=== PATIENT | female | born 1985 | race Two or more races ===

== ENCOUNTER 2016-11-09 02:39 | Emergency (ER) | payer OTHER ==
[2016-11-09 02:51] VITALS: TEMP 96.7
--- NOTE | 2016-11-09 03:00 | ED ---
General Adult HPI - General Source: police, RN notes reviewed Mode of arrival: EMS Limitations: no limitations <Bharat Tapia - Last Filed: 11/09/16 03:13> <Bharat Olmstead - Last Filed: 11/09/16 09:54> - General Chief complaint: Psychiatric Symptoms Stated complaint: Mental Health/ETOH Time Seen by Provider: 11/09/16 02:45 - History of Present Illness Initial comments: This is a 31-year-old female who was brought to the emergency department by EMS with the police. According to EMS she was in an argument with her girlfriend and she started yelling and becoming uncooperative and hostile. Patient stated she wanted to kill himself and so they brought her to the emergency department. Patient states she was not hit and did not have anyone patient denies any pain. Patient denies headache patient denies any neck pain patient denies any difficulty breathing or abdominal pain. Patient denies any nausea vomiting diarrhea. Patient states she did no drug but she has been drinking. (Bharat Tapia) - Related Data Home Medications Medication Instructions Recorded Confirmed Gabapentin [Neurontin] 600 mg PO Q8H 03/04/14 11/09/16 Allergies Allergy/AdvReac Type Severity Reaction Status Date / Time POWDER IN GLOVES AdvReac Unknown IRRITATED Uncoded 06/21/15 12:06 SKIN Review of Systems ROS Other: All systems not noted in ROS Statement are negative. <Bharat Tapia - Last Filed: 11/09/16 03:13> ROS Other: All systems not noted in ROS Statement are negative. <Bharat Olmstead - Last Filed: 11/09/16 09:54> ROS Statement: Those systems with pertinent positive or pertinent negative responses have been documented in the HPI. Past Medical History Past Medical History: GERD/Reflux, Hyperlipidemia, Pneumonia, Sleep Apnea/CPAP/ BIPAP Additional Past Medical History / Comment(s): NO C-PAP, GENITAL HERPES, MIGRAINES, BRONCHITIS. History of Any Multi-Drug Resistant Organisms: MRSA Date of last positivie culture/infection: 06/21/15 MDRO Source:: right foot Past Surgical History: Tonsillectomy Additional Past Surgical History / Comment(s): TONSILLECTOMY & EAR TUBES A CHILD, NERVES "BURNT " IN NECK. Past Anesthesia/Blood Transfusion Reactions: No Reported Reaction Past Psychological History: Anxiety, Bipolar Smoking Status: Current every day smoker Past Alcohol Use History: None Reported Past Drug Use History: Marijuana Additional Drug Use History / Comment(s): USES MARIJUANA DAILY. <Bharat Tapia - Last Filed: 11/09/16 03:13> General Exam Limitations: no limitations <Bharat Tapia - Last Filed: 11/09/16 03:13> <Bharat Olmstead - Last Filed: 11/09/16 09:54> - General Exam Comments Initial Comments: GENERAL: Patient is well-developed and well-nourished. Patient is nontoxic and well- hydrated and is in no acute distress. The patient is very upset and uncooperative ENT: Neck is soft and supple. No significant lymphadenopathy is noted. Oropharynx is clear. Moist mucous membranes. Neck has full range of motion without eliciting any pain. EYES: The sclera were anicteric and conjunctiva were pink and moist. Extraocular movements were intact and pupils were equal round and reactive to light. Eyelids were unremarkable. PULMONARY: Unlabored respirations. Good breath sounds bilaterally. No audible rales rhonchi or wheezing was noted. CARDIOVASCULAR: There is a regular rate and rhythm without any murmurs gallops or rubs. ABDOMEN: Soft and nontender with normal bowel sounds. No palpable organomegaly was noted. There is no palpable pulsatile mass. SKIN: Skin is clear with no lesions or rashes and otherwise unremarkable. NEUROLOGIC: Patient is alert and oriented x3. Cranial nerves II through XII are grossly intact. Motor and sensory are also intact. Normal speech, volume and content. Symmetrical smile. MUSCULOSKELETAL: Normal extremities with adequate strength and full range of motion. LYMPHATICS: No significant lymphadenopathy is noted PSYCHIATRIC: Patient is intoxicated and clearly she suicidal (Bharat Tapia) Course <Bharat Tapia - Last Filed: 11/09/16 03:13> <Bharat Olmstead - Last Filed: 11/09/16 09:54> Vital Signs 11/09/16 02:45 Temperature 96.7 F L Pulse Rate 99 Respiratory 18 Rate Blood Pressure 182/117 O2 Sat by Pulse 96 Oximetry - Reevaluation(s) Reevaluation #1: 11/09/16 09:53 Patient was made medically clear for psychiatric evaluation (Bharat Olmstead) Procedures - Restraint - Face to Face Restraint Occurrence 1 Patient's Immediate Situation: Endangers self safety, Endangers others' safety, Endangers staff safety Patient's Reaction to the Intervention: Uncooperative, Angry, Hostile, Belligerent Patient's Medical & Behavioral Condition: Awake, Alert, Other (see comment) ( Patient appears intoxicated) Face to Face Eval of Restraint Date: 11/09/16 Face to Face Eval of Restraint Time: 02:50 <Bharat Tapia - Last Filed: 11/09/16 03:13> Medical Decision Making <Bharat Tapia - Last Filed: 11/09/16 03:13> <Bharat Olmstead - Last Filed: 11/09/16 09:54> - Medical Decision Making Dr. Olmstead taking over the care of this patient at 7 AM (Bharat Tapia) 31 female at ER for evaluation of psychiatric disease, alcohol intoxication, patient this time is not homicidal or suicidal, was seen and evaluated by psychiatry and can be discharged home (Bharat Olmstead) Disposition <Bharat Tapia - Last Filed: 11/09/16 03:13> <Bharat Olmstead - Last Filed: 11/09/16 09:54> Clinical Impression: Depression, Alcohol intoxication Disposition: HOME SELF-CARE Condition: Good Instructions: Abuse of Alcohol (ED), Alcohol Intoxication (ED) Referrals: None,Stated [Primary Care Provider] - 1-2 days
[2016-11-09] MEDS ORDERED: ZIPRASIDONE 20 MG VIAL IM STA (03:13)
[2016-11-09] MEDS ORDERED: LORazepam 2 MG/ML SYRINGE IM STA (03:13)
[2016-11-09 10:00] VITALS: BP 116/67; PULSE 102; RESP 15
== END 2016-11-09 10:45 | disposition home or self-care (01) ==
LOC: EC 02:39
DX: F32.9 Major depressive disorder, single episode, unspecified (principal); F10.129 Alcohol abuse with intoxication, unspecified; Z79.899 Other long term (current) drug therapy; Z91.048 Other nonmedicinal substance allergy status; F17.200 Nicotine dependence, unspecified, uncomplicated; Z78.1 Physical restraint status
CPT/HCPCS: 96372 ×2; 99284; 82075; J2060; J3486

== ENCOUNTER → 2018-11-28 | Outpatient (CLI) | payer OTHER ==
[2018-11-28 09:10] LABS: HGB 14.8 gm/dL (11.4-16.0); MCH 30.6 pg (25.0-35.0); MCHC 32.2 g/dL (31.0-37.0); MCV 95.2 fL (80.0-100.0); Mean Platelet Volume 8.4; Platelet Count 220 k/uL (150-450); RBC 4.83 m/uL (3.80-5.40); RDW 13.1 % (11.5-15.5); WBC 7.8 k/uL (3.8-10.6)
[2018-11-28 09:11] LABS: Prothrombin Time 10.6 sec (9.0-12.0)
[2018-11-28 09:42] LABS: Bilirubin, Delta 0.1 mg/dL (0.0-0.2); Bilirubin,Unconjugated 0.6 mg/dL (0.0-1.1); Total Bilirubin 0.7 mg/dL (0.2-1.3); Total Protein 7.2 g/dL (6.3-8.2)
--- NOTE | 2018-11-28 13:58 | US ---
EXAMINATION TYPE: US liver DATE OF EXAM: 11/28/2018 COMPARISON: NONE CLINICAL HISTORY: Z85.3 Personal History of infectious and parasitic diseases. Patient stated has Herpes and tested positive for Hepatitis C antibody. EXAM MEASUREMENTS: Liver Length: 14.6 cm Gallbladder Wall: 0.2 cm CBD: 0.2 cm Right Kidney: 10.6 x 5.1 x 3.5 cm Pancreas: Tail obscured by overlying bowel gas Liver: hyperechoic to right renal cortex which suggests fatty liver Gallbladder: wnl Evidence for sonographic Garcia's sign: no CBD: wnl Right Kidney: No hydronephrosis or masses seen IMPRESSION: 1. Mild fatty liver.
[2018-11-28 17:28] LABS: EBV-VCA (IgG) >8.0 AI
[2018-11-28 18:18] LABS: Protein, Total 6.7 g/dL (6.2-8.2)
[2018-11-28 18:50] LABS: Urine Alcohol Negative (Negative); Urine Barbiturate Negative (Negative); Urine Cocaine Negative (Negative); Urine Methadone Negative (Negative); Urine Opiates Negative (Negative); Urine Phencyclidine Negative (Negative)
[2018-11-29 13:22] LABS: Gamma Globulin 1.17 g/dL (0.70-1.50)
[2018-11-29 13:39] LABS: Ceruloplasmin 25.5 mg/dL (20.0-60.0)
== END | disposition home or self-care (01) ==
LOC: RADUSWWP 08:21
PROVIDERS: ATTEND Internal Medicine Gastroenterology
DX: Z09 Encounter for follow-up examination after completed treatment for conditions other than malignant neoplasm (principal); K76.0 Fatty (change of) liver, not elsewhere classified; R74.8 Abnormal levels of other serum enzymes; Z86.19 Personal history of other infectious and parasitic diseases
CPT/HCPCS: 76705; 80076; 80306; 82390; 82728; 83516; 83540; 83550; 84165; 85027; 85610; 86038; 86644; 86645; 86663; 86664; 86665; 87522

== ENCOUNTER 2019-01-10 23:22 | Emergency (ER) | payer OTHER ==
--- NOTE | 2019-01-10 23:29 | ED ---
Psych HPI <Bharat Tapia - Last Filed: 01/11/19 09:59> <Yasmin Bryant - Last Filed: 01/11/19 20:41> - General Stated Complaint: ETOH/Mental Health Time Seen by Provider: 01/10/19 23:27 - History of Present Illness Initial Comments: There is a 33-year-old female with a history of polysubstance abuse who presents the emergency department today via EMS for evaluation of intoxication and aggressive behavior. Police were called because the patient was intoxicated refusing to get off of a public bus. Please from the patient appeared to be very intoxicated was uncooperative had an unsteady gait they called EMS. Decision was made the patient needed to be medically evaluated. Patient was noted to have abrasions on her right knee and hand she reported punching something that she never could until she got the abrasion on her knee or what she had punched with her hand. Upon initial evaluation patient is tearful and crying stating she was 30 day sober from meth but today she had marijuana and alcohol. She denies other drug use. She is uncertain how she got or injuries. (Yasmin Bryant) - Related Data Home Medications Medication Instructions Recorded Confirmed No Known Home Medications 01/11/19 01/11/19 Allergies Allergy/AdvReac Type Severity Reaction Status Date / Time POWDER IN GLOVES AdvReac Unknown IRRITATED Uncoded 01/10/19 23:29 SKIN Review of Systems ROS Other: All systems not noted in ROS Statement are negative. <Bharat Tapia - Last Filed: 01/11/19 09:59> ROS Other: All systems not noted in ROS Statement are negative. <Yasmin Bryant - Last Filed: 01/11/19 20:41> ROS Statement: Those systems with pertinent positive or pertinent negative responses have been documented in the HPI. Past Medical History Past Medical History: GERD/Reflux, Hyperlipidemia, Pneumonia, Sleep Apnea/CPAP/BIPAP Additional Past Medical History / Comment(s): NO C-PAP, GENITAL HERPES, MIGRAINES, BRONCHITIS. History of Any Multi-Drug Resistant Organisms: MRSA Date of last positivie culture/infection: 06/21/15 MDRO Source:: right foot Past Surgical History: Tonsillectomy Additional Past Surgical History / Comment(s): TONSILLECTOMY & EAR TUBES A CHILD, NERVES "BURNT " IN NECK. Past Anesthesia/Blood Transfusion Reactions: No Reported Reaction Past Psychological History: Anxiety, Bipolar Smoking Status: Current every day smoker Past Alcohol Use History: None Reported Past Drug Use History: Marijuana Additional Drug Use History / Comment(s): USES MARIJUANA DAILY. <Yasmin Bryant P - Last Filed: 01/11/19 20:41> General Exam <Yasmin Bryant P - Last Filed: 01/11/19 20:41> - General Exam Comments Initial Comments: Physical Exam GENERAL: Agitated female HENT: Normocephalic, Atraumatic. EYES: PERRL, EOMI PULMONARY: Unlabored respirations. CARDIOVASCULAR: Tachycardic, regular warm and well perfused extremities no lower extremity edema ABDOMEN: Soft and nontender with normal bowel sounds. SKIN: Abrasion to right knee no active bleeding Abrasion to right hand no active bleeding : Deferred NEUROLOGIC: Alert and oriented to person and able scheduled for she is in the hospital, alert to date alert to date slurred speech consistent with alcohol intoxication MUSCULOSKELETAL: Normal extremities with adequate strength and full range of motion. No lower extremity swelling or edema. No calf tenderness. PSYCHIATRIC: agitated, aggressive yelling out, cursing at staff Limitations: no limitations (Yasmin Bryant) Course Vital Signs 01/10/19 01/11/19 01/11/19 23:25 00:23 01:00 Temperature 97.4 F L Pulse Rate 104 H 64 68 Respiratory 16 14 14 Rate Blood Pressure 136/104 108/78 O2 Sat by Pulse 98 97 98 Oximetry 01/11/19 01/11/19 01/11/19 01:23 07:50 10:24 Temperature 97.9 F Pulse Rate 98 116 H Respiratory 14 18 18 Rate Blood Pressure 112/77 122/93 115/86 O2 Sat by Pulse 98 98 98 Oximetry Procedures - Restraint - Face to Face Restraint Occurrence 1 Patient's Immediate Situation: Endangers self safety, Endangers others' safety, Endangers staff safety, Violent behavior Patient's Reaction to the Intervention: Hostile, Belligerent Patient's Medical & Behavioral Condition: Awake, Agitated, Suicidal thoughts Need to Continue or Terminate Restraint or Seclusion: Continue Face to Face Eval of Restraint Date: 04/05/19 Face to Face Eval of Restraint Time: 23:35 <Yasmin Bryant - Last Filed: 01/11/19 20:41> Medical Decision Making - Lab Data Result diagrams: 01/11/19 00:15 01/11/19 00:15 <Bharat Tapia - Last Filed: 01/11/19 09:59> - Lab Data Result diagrams: 01/11/19 00:15 01/11/19 00:15 <Yasmin Bryant - Last Filed: 01/11/19 20:41> - Medical Decision Making EPS evaluated the patient and determined that the patient could be discharged home to a [place] [facility]. Patient is not suicidal or homicidal at this time and does not remember ever seeing anything like that. (Bharat Tapia) Patient was seen and evaluated upon arrival, she is belligerent and admits to being intoxicated Patient does have abrasion to her right knee and hand. In the setting of obvious trauma and altered mental status while intoxicated I will obtain a head CT Labs resulted with a alcohol of 250 patient will be sober around [address] were unremarkable Patient calm after Ativan, sleeping comfortably Patient will be evaluated by EPS when sober (Yasmin Bryant) - Lab Data Lab Results 01/11/19 01/11/19 01/11/19 Range/Units 00:15 00:15 01:15 WBC 8.8 (3.8-10.6) k/uL RBC 4.65 (3.80-5.40) m/uL Hgb 14.2 (11.4-16.0) gm/dL Hct 41.8 (34.0-46.0) % MCV 89.8 D (80.0-100.0) fL MCH 30.6 (25.0-35.0) pg MCHC 34.1 (31.0-37.0) g/dL RDW 14.1 (11.5-15.5) % Plt Count 187 (150-450) k/uL Neutrophils % 57 % Lymphocytes % 30 % Monocytes % 5 % Eosinophils % 5 % Basophils % 1 % Neutrophils # 5.0 (1.3-7.7) k/uL Lymphocytes # 2.6 (1.0-4.8) k/uL Monocytes # 0.5 (0-1.0) k/uL Eosinophils # 0.4 (0-0.7) k/uL Basophils # 0.1 (0-0.2) k/uL Sodium 141 (137-145) mmol/L Potassium 3.7 (3.5-5.1) mmol/L Chloride 109 H (98-107) mmol/L Carbon Dioxide 21 L (22-30) mmol/L Anion Gap 11 mmol/L BUN 13 (7-17) mg/dL Creatinine 0.56 (0.52-1.04) mg/dL Est GFR (CKD-EPI)AfAm >90 (>60 ml/min/1.73 sqM) Est GFR (CKD-EPI)NonAf >90 (>60 ml/min/1.73 sqM) Glucose 87 (74-99) mg/dL Calcium 9.2 (8.4-10.2) mg/dL Total Bilirubin 0.4 (0.2-1.3) mg/dL AST 165 H (14-36) U/L ALT 268 H (9-52) U/L Alkaline Phosphatase 60 (38-126) U/L Total Protein 7.3 (6.3-8.2) g/dL Albumin 4.2 (3.5-5.0) g/dL HCG, Quant <2.4 mIU/mL Urine Color Urine Appearance (Clear) Urine pH (5.0-8.0) Ur Specific [place] (1.001-1.035) Urine Protein (Negative) Urine Glucose (UA) (Negative) Urine Ketones (Negative) Urine Blood (Negative) Urine Nitrite (Negative) Urine Bilirubin (Negative) Urine Urobilinogen (<2.0) mg/dL Ur Leukocyte Esterase (Negative) Urine HCG, Qual (Not Detectd) Urine Opiates Screen (NotDetected) Ur Oxycodone Screen (NotDetected) Urine Methadone Screen (NotDetected) Ur Propoxyphene Screen (NotDetected) Ur Barbiturates Screen (NotDetected) U Tricyclic Antidepress (NotDetected) Ur Phencyclidine Scrn (NotDetected) Ur Amphetamines Screen (NotDetected) U Methamphetamines Scrn (NotDetected) U Benzodiazepines Scrn (NotDetected) Urine Cocaine Screen (NotDetected) U Marijuana (THC) Screen (NotDetected) Serum Alcohol 255 H* mg/dL 01/11/19 01/11/19 Range/Units 05:35 05:35 WBC (3.8-10.6) k/uL RBC (3.80-5.40) m/uL Hgb (11.4-16.0) gm/dL Hct (34.0-46.0) % MCV (80.0-100.0) fL MCH (25.0-35.0) pg MCHC (31.0-37.0) g/dL RDW (11.5-15.5) % Plt Count (150-450) k/uL Neutrophils % % Lymphocytes % % Monocytes % % Eosinophils % % Basophils % % Neutrophils # (1.3-7.7) k/uL Lymphocytes # (1.0-4.8) k/uL Monocytes # (0-1.0) k/uL Eosinophils # (0-0.7) k/uL Basophils # (0-0.2) k/uL Sodium (137-145) mmol/L Potassium (3.5-5.1) mmol/L Chloride (98-107) mmol/L Carbon Dioxide (22-30) mmol/L Anion Gap mmol/L BUN (7-17) mg/dL Creatinine (0.52-1.04) mg/dL Est GFR (CKD-EPI)AfAm (>60 ml/min/1.73 sqM) Est GFR (CKD-EPI)NonAf (>60 ml/min/1.73 sqM) Glucose (74-99) mg/dL Calcium (8.4-10.2) mg/dL Total Bilirubin (0.2-1.3) mg/dL AST (14-36) U/L ALT (9-52) U/L Alkaline Phosphatase (38-126) U/L Total Protein (6.3-8.2) g/dL Albumin (3.5-5.0) g/dL HCG, Quant mIU/mL Urine Color Light Yellow Urine Appearance Clear (Clear) Urine pH 6.5 (5.0-8.0) Ur Specific [place] 1.007 (1.001-1.035) Urine Protein Negative (Negative) Urine Glucose (UA) Negative (Negative) Urine Ketones Negative (Negative) Urine Blood Negative (Negative) Urine Nitrite Negative (Negative) Urine Bilirubin Negative (Negative) Urine Urobilinogen <2.0 (<2.0) mg/dL Ur Leukocyte Esterase Negative (Negative) Urine HCG, Qual Not Detected (Not Detectd) Urine Opiates Screen Not Detected (NotDetected) Ur Oxycodone Screen Not Detected (NotDetected) Urine Methadone Screen Not Detected (NotDetected) Ur Propoxyphene Screen Not Detected (NotDetected) Ur Barbiturates Screen Not Detected (NotDetected) U Tricyclic Antidepress Not Detected (NotDetected) Ur Phencyclidine Scrn Not Detected (NotDetected) Ur Amphetamines Screen Not Detected (NotDetected) U Methamphetamines Scrn Not Detected (NotDetected) U Benzodiazepines Scrn Detected H (NotDetected) Urine Cocaine Screen Not Detected (NotDetected) U Marijuana (THC) Screen Detected H (NotDetected) Serum Alcohol mg/dL Disposition Is patient prescribed a controlled substance at d/c from ED?: No Time of Disposition: 09:58 <Bharat Tapia - Last Filed: 01/11/19 09:59> <Yasmin Bryant - Last Filed: 01/11/19 20:41> Clinical Impression: Alcoholic intoxication, Situational depression Disposition: HOME SELF-CARE Instructions (If sedation given, give patient instructions): Depression (ED), Alcohol Intoxication (ED) Referrals: Clarisa Badillo MD [Primary Care Provider] - 1-2 days
[2019-01-10] MEDS ORDERED: LORazepam 2 MG/ML INJ IM STA (23:30)
[2019-01-10] MEDS ORDERED: DIPH,PERTUS(ACELL)TETVAC-LF 0.5 ML VIAL IM ONE (23:54)
[2019-01-11 00:42] LABS: Basophils # (A) 0.1 k/uL (0-0.2); Basophils % (A) 1 %; Eosinophils # (A) 0.4 k/uL (0-0.7); Eosinophils % (A) 5 %; HCT 41.8 % (34.0-46.0); HGB 14.2 gm/dL (11.4-16.0); Lymphocytes # (A) 2.6 k/uL (1.0-4.8); Lymphocytes % (A) 30 %; MCH 30.6 pg (25.0-35.0); MCHC 34.1 g/dL (31.0-37.0); Mean Platelet Volume 9.6; Monocytes # (A) 0.5 k/uL (0-1.0); Monocytes % (A) 5 %; Neutrophils % (A) 57 %; Platelet Count 187 k/uL (150-450); RBC 4.65 m/uL (3.80-5.40); RDW 14.1 % (11.5-15.5); WBC 8.8 k/uL (3.8-10.6)
[2019-01-11 00:53] LABS: MCV 89.8 fL (80.0-100.0)
[2019-01-11 01:10] LABS: ALT 268 U/L (9-52); AST 165 U/L (14-36); Albumin 4.2 g/dL (3.5-5.0); Alkaline Phosphatase 60 U/L (38-126); Anion Gap 11 mmol/L; Blood Urea Nitrogen 13 mg/dL (7-17); Calcium 9.2 mg/dL (8.4-10.2); Carbon Dioxide 21 mmol/L (22-30); Chloride 109 mmol/L (98-107); Glucose 87 mg/dL (74-99); Potassium 3.7 mmol/L (3.5-5.1); Sodium 141 mmol/L (137-145); Total Bilirubin 0.4 mg/dL (0.2-1.3); Total Protein 7.3 g/dL (6.3-8.2)
[2019-01-11 01:27] LABS: Alcohol 255 mg/dL
--- NOTE | 2019-01-11 02:13 | CT ---
EXAM: CT Head Without Intravenous Contrast CLINICAL HISTORY: ITS.REASON CT Reason: Pain TECHNIQUE: Axial computed tomography images of the head/brain without intravenous contrast. CTDI is 45.2 mGy and DLP is 1015 mGy-cm. This CT exam was performed using one or more of the following dose reduction techniques: automated exposure control, adjustment of the mA and/or kV according to patient size, and/or use of iterative reconstruction technique. COMPARISON: CT head 06/06/2015. FINDINGS: Brain: Unremarkable. No hemorrhage. No significant white matter disease. No edema. Ventricles: Unremarkable. No ventriculomegaly. Bones/joints: Unremarkable. No acute fracture. Soft tissues: Unremarkable. Sinuses: Unremarkable as visualized. No acute sinusitis. Mastoid air cells: Unremarkable as visualized. No mastoid effusion. Orbits: Small left periorbital contusion. IMPRESSION: 1. No intracranial hemorrhage or other acute intracranial abnormality. 2. Small left periorbital contusion. EXAM: CT Cervical Spine Without Intravenous Contrast CLINICAL HISTORY: ITS.REASON CT Reason: Pain TECHNIQUE: Axial computed tomography images of the cervical spine without intravenous contrast. CTDI is 10.6 mGy and DLP is 348.5 mGy-cm. This CT exam was performed using one or more of the following dose reduction techniques: automated exposure control, adjustment of the mA and/or kV according to patient size, and/or use of iterative reconstruction technique. COMPARISON: None. FINDINGS: Vertebrae: Unremarkable. No acute fracture. Discs/spinal canal/neural foramina: No acute findings. No spinal canal stenosis. Soft tissues: Unremarkable. IMPRESSION: No fracture or traumatic malalignment of the cervical spine.
[2019-01-11 06:01] LABS: Appearance,Urine Clear (Clear); Bilirubin,Urine Negative (Negative); Blood,Urine Negative (Negative); Color,Urine Light Yellow; Glucose,Urine (UA) Negative (Negative); Ketones,Urine Negative (Negative); Leukocyte Esterase,Urine Negative (Negative); Nitrite,Urine Negative (Negative); PH, Urine 6.5 (5.0-8.0); Protein,Urine Negative (Negative); Specific Gravity,Urine 1.007 (1.001-1.035); Urobilinogen,Urine <2.0 mg/dL (<2.0)
[2019-01-11 06:25] LABS: Amphetamine Screen,Urine Not Detected (NotDetected); Barbiturate Screen,Urine Not Detected (NotDetected); Cocaine Screen,Urine Not Detected (NotDetected); Methadone Screen, Urine Not Detected (NotDetected); Opiate Screen,Urine Not Detected (NotDetected); Oxycodone Screen, Urine Not Detected (NotDetected); Phencyclidine Screen,Urine Not Detected (NotDetected); Tricyclic Antidepressant,Urine Not Detected (NotDetected)
[2019-01-11 06:26] LABS: Benzodiazepines Screen,Urine Detected (NotDetected); Urn Cannabinoid Scrn Detected (NotDetected)
[2019-01-11 07:53] VITALS: RESP 18
[2019-01-11 10:26] VITALS: BP 115/86; PULSE 116; TEMP 97.9
== END 2019-01-11 10:23 | disposition home or self-care (01) ==
LOC: EC 23:22
DX: F43.21 Adjustment disorder with depressed mood (principal); F10.129 Alcohol abuse with intoxication, unspecified; S80.211A Abrasion, right knee, initial encounter; S60.511A Abrasion of right hand, initial encounter; R00.0 Tachycardia, unspecified; R45.1 Restlessness and agitation; R45.6 Violent behavior; F17.200 Nicotine dependence, unspecified, uncomplicated; Z91.048 Other nonmedicinal substance allergy status; Z86.14 Personal history of Methicillin resistant Staphylococcus aureus infection; Y90.8 Blood alcohol level of 240 mg/100 ml or more; Z78.1 Physical restraint status; Z23 Encounter for immunization; W22.8XXA Striking against or struck by other objects, initial encounter; Y92.811 Bus as the place of occurrence of the external cause
CPT/HCPCS: 82075; 36415; 80053; 85025; 81003; 81025; 84702; 80306; 72125; 70450; 90715; 99285; 96372; 90471; G0480; J2060; 80320

== ENCOUNTER 2020-11-13 03:51 | Emergency (ER) | payer OTHER ==
[2020-11-13 04:08] VITALS: RESP 18
--- NOTE | 2020-11-13 11:31 | ED ---
General Adult HPI - General Chief complaint: Psychiatric Symptoms Stated complaint: ETOH Time Seen by Provider: 11/13/20 03:59 Source: patient, EMS Mode of arrival: EMS Limitations: no limitations - Related Data Home Medications Medication Instructions Recorded Confirmed No Known Home Medications 01/11/19 11/13/20 Allergies Allergy/AdvReac Type Severity Reaction Status Date / Time POWDER IN GLOVES AdvReac Unknown IRRITATED Uncoded 11/13/20 09:57 SKIN Review of Systems ROS Statement: Those systems with pertinent positive or pertinent negative responses have been documented in the HPI. ROS Other: All systems not noted in ROS Statement are negative. Past Medical History Past Medical History: GERD/Reflux, Hyperlipidemia, Pneumonia, Sleep Apnea/CPAP/BIPAP Additional Past Medical History / Comment(s): NO C-PAP, GENITAL HERPES, MIGRAINES, BRONCHITIS. History of Any Multi-Drug Resistant Organisms: MRSA Date of last positivie culture/infection: 06/21/15 MDRO Source:: right foot Past Surgical History: Tonsillectomy Additional Past Surgical History / Comment(s): TONSILLECTOMY & EAR TUBES A CHILD, NERVES "BURNT " IN NECK. Past Anesthesia/Blood Transfusion Reactions: No Reported Reaction Past Psychological History: Anxiety, Bipolar Smoking Status: Current every day smoker Past Alcohol Use History: Occasional Past Drug Use History: Marijuana General Exam Limitations: no limitations Course Vital Signs 11/13/20 03:52 Temperature 97.8 F Pulse Rate 102 H Respiratory 18 Rate Blood Pressure 121/81 O2 Sat by Pulse 97 Oximetry Medical Decision Making - Medical Decision Making Dr. Han signed out this patient to me at 7 AM. Disposition Clinical Impression: Situational depression, Alcohol intoxication Disposition: HOME SELF-CARE Is patient prescribed a controlled substance at d/c from ED?: No Referrals: None,Stated [Primary Care Provider] - 1-2 days Time of Disposition: 11:29
[2020-11-13 11:48] VITALS: BP 122/82; PULSE 90; TEMP 97.9
== END 2020-11-13 11:45 | disposition home or self-care (01) ==
LOC: EC 03:51
DX: F43.21 Adjustment disorder with depressed mood (principal); F10.129 Alcohol abuse with intoxication, unspecified; Y90.9 Presence of alcohol in blood, level not specified; R45.851 Suicidal ideations; G47.30 Sleep apnea, unspecified; F17.200 Nicotine dependence, unspecified, uncomplicated; Z91.09 Other allergy status, other than to drugs and biological substances; Z99.89 Dependence on other enabling machines and devices
CPT/HCPCS: 82075; 99285

== ENCOUNTER → 2021-06-08 | Outpatient (CLI) | payer OTHER ==
[2021-06-08 21:12] LABS: Basophils # (A) 0.06 X 10*3/uL (0.00-0.10); Basophils % (A) 0.7 %; Eosinophils # (A) 0.71 X 10*3/uL (0.04-0.35); Eosinophils % (A) 8.5 %; HCT 40.9 % (37.2-46.3); HGB 13.5 g/dL (12.0-15.0); Lymphocytes # (A) 2.36 X 10*3/uL (0.90-5.00); Lymphocytes % (A) 28.2 %; MCH 29.9 pg (27.0-32.0); MCV 90.7 fL (80.0-97.0); Mean Platelet Volume 14.3 fL (9.5-12.2); Monocytes # (A) 0.76 X 10*3/uL (0.20-1.00); Monocytes % (A) 9.1 %; Neutrophils # (A) 4.41 X 10*3/uL (1.80-7.70); Neutrophils % (A) 52.7 %; Platelet Count 194 X 10*3/uL (140-440); RBC 4.51 X 10*6/uL (4.10-5.20); RDW 14.5 % (11.5-14.5); WBC 8.37 X 10*3/uL (4.50-10.00)
[2021-06-09 06:03] LABS: African American GFR (CKD) 110.7 (60.0-200.0); Albumin 4.4 g/dL (3.80-4.90); Albumin/Globulin Ratio 1.83 (1.60-3.17); Anion Gap 9.6 mmol/L (4.00-12.00); Calcium 10.3 mg/dL (8.7-10.3); Carbon Dioxide 22.4 mmol/L (21.6-31.8); Globulin 2.4 g/dL (1.6-3.3); Non-African American GFR(CKD) 95.5 (60.0-200.0); Total Bilirubin 0.3 mg/dL (0.3-1.2); Total Protein 6.8 g/dL (6.2-8.2)
== END | disposition home or self-care (01) ==
LOC: LABWHC1 13:44
PROVIDERS: ATTEND Internal Medicine Gastroenterology
DX: B18.2 Chronic viral hepatitis C (principal)
CPT/HCPCS: 36415; 80053; 85025; 87522

== ENCOUNTER 2021-09-19 06:55 | Emergency (ER) | payer OTHER ==
[2021-09-19 07:05] VITALS: TEMP 98.6
[2021-09-19] MEDS ORDERED: LORazepam 2 MG/ML INJ IV STA (07:09)
--- NOTE | 2021-09-19 07:26 | ED ---
URI HPI - General Chief Complaint: Upper Respiratory Infection Stated Complaint: covid+ Time Seen by Provider: 09/19/21 06:56 Source: patient, RN notes reviewed Mode of arrival: ambulatory Limitations: no limitations - History of Present Illness Initial Comments: This a 35-year-old female presents emergency Department with chief complaint of COVID-19. Patient states she tested +5 days ago Patient states symptoms started a few days prior to that. Patient states she still has cough, body aches, states that she has no taste or smell. She denies any increasing shortness of breath. She states that she's had burning of her lungs. Patient also admits that she relapsed on methamphetamines she states she's been injecting methamphetamines. She is very anxious currently. Denies being any suicidal or homicidal s - Related Data Home Medications Medication Instructions Recorded Confirmed No Known Home Medications 01/11/19 11/13/20 Allergies Allergy/AdvReac Type Severity Reaction Status Date / Time POWDER IN GLOVES AdvReac Unknown IRRITATED Uncoded 09/19/21 07:05 SKIN Review of Systems ROS Statement: Those systems with pertinent positive or pertinent negative responses have been documented in the HPI. ROS Other: All systems not noted in ROS Statement are negative. Past Medical History Past Medical History: GERD/Reflux, Hyperlipidemia, Liver Disease, Pneumonia, Sleep Apnea/CPAP/BIPAP Additional Past Medical History / Comment(s): NO C-PAP, GENITAL HERPES, MIGRAINES, BRONCHITIS. History of Any Multi-Drug Resistant Organisms: MRSA Date of last positivie culture/infection: 06/21/15 MDRO Source:: right foot Past Surgical History: Tonsillectomy Additional Past Surgical History / Comment(s): TONSILLECTOMY & EAR TUBES A CHILD, NERVES "BURNT " IN NECK. Past Anesthesia/Blood Transfusion Reactions: No Reported Reaction Past Psychological History: Anxiety, Bipolar Smoking Status: Current every day smoker Past Alcohol Use History: Occasional Past Drug Use History: Marijuana General Exam Limitations: no limitations General appearance: alert, in no apparent distress Head exam: Present: atraumatic, normocephalic, normal inspection Eye exam: Present: normal appearance, PERRL, EOMI. Absent: scleral icterus, conjunctival injection, periorbital swelling ENT exam: Present: normal exam, normal oropharynx, mucous membranes moist Neck exam: Present: normal inspection, full ROM. Absent: tenderness, meningismus, lymphadenopathy Respiratory exam: Present: normal lung sounds bilaterally. Absent: respiratory distress, wheezes, rales, rhonchi, stridor Cardiovascular Exam: Present: normal rhythm, tachycardia, normal heart sounds. Absent: systolic murmur, diastolic murmur, rubs, gallop, clicks GI/Abdominal exam: Present: soft, normal bowel sounds. Absent: distended, tenderness, guarding, rebound, rigid Neurological exam: Present: alert, oriented X3 Psychiatric exam: Present: anxious Skin exam: Present: warm, dry, intact, normal color. Absent: rash Course Vital Signs 09/19/21 09/19/21 09/19/21 07:01 07:24 08:02 Temperature 98.6 F Pulse Rate 132 H 118 H Respiratory 22 16 22 Rate Blood Pressure 153/94 136/101 O2 Sat by Pulse 98 97 Oximetry Medical Decision Making - Medical Decision Making 35-year-old presented for COVID-19. Patient did receive monoclonal antibodies x-rays unremarkable. Patient did abuse methamphetamines prior to arrival. Patient was tachycardic, was given Ativan will be discharged stable condition. Disposition Clinical Impression: COVID-19 Disposition: HOME SELF-CARE Condition: Stable Instructions (If sedation given, give patient instructions): Coronavirus Disease 2019 (COVID-19) Additional Instructions: Please return to the Emergency Department if symptoms worsen or any other concerns. Is patient prescribed a controlled substance at d/c from ED?: No Referrals: Clarisa Badillo MD [Primary Care Provider] - 1-2 days Time of Disposition: 08:09
--- NOTE | 2021-09-19 07:49 | XR ---
EXAMINATION TYPE: XR chest 2V DATE OF EXAM: 09/19/2021 COMPARISON: 05/11/2014 INDICATION: Cough TECHNIQUE: Frontal and lateral views of the chest are obtained. FINDINGS: The heart size is normal. The pulmonary vasculature is normal. The lungs are clear. IMPRESSION: 1. No acute pulmonary process.
[2021-09-19] MEDS ORDERED: BAMLANIVIMAB (EUA) 700 MG, ETESEVIMAB (EUA) 1,400 MG in SODIUM CHLORIDE 0.9% 50 ML IVPB ONE (08:00)
[2021-09-19] MEDS ORDERED: SODIUM CHLORIDE 0.9% 50 ML IVPB ONE (08:30)
[2021-09-19 09:06] VITALS: RESP 20
[2021-09-19 09:53] VITALS: BP 127/92; PULSE 118
== END 2021-09-19 09:49 | disposition home or self-care (01) ==
LOC: EC 06:55
DX: U07.1 COVID-19 (principal); F17.200 Nicotine dependence, unspecified, uncomplicated
CPT/HCPCS: 71046; 99283; 96374; J2060; J3490

== ENCOUNTER 2024-12-16 21:00 | Emergency (ER) | payer OTHER ==
[2024-12-16 21:13] VITALS: RESP 18
--- NOTE | 2024-12-16 21:28 | ED ---
Lower Extremity Injury HPI - General Chief Complaint: Extremity Injury, Lower Stated Complaint: posib broken toe Time Seen by Provider: 12/16/24 21:14 Source: patient, RN notes reviewed Mode of arrival: wheelchair Limitations: no limitations - History of Present Illness Initial Comments: 39-year-old female presenting to the emergency department for complaint of left great toe pain. Patient states that she was at work where she was moving a chicken fryer basket that accidentally dropped on her left great toe. States that she is able to ambulate after this however has been complaining of severe pain. Denies previous surgeries of the toe or foot. Has not taken medication since the injury - Related Data Home Medications Medication Instructions Recorded Confirmed Buprenorphine/Naloxone 8Mg/2Mg 1.5 film SL DAILY 11/19/22 11/19/22 [Suboxone 8-2Mg Film] Docusate Sodium 250 mg PO BID PRN 11/19/22 11/19/22 FLUoxetine HCL [PROzac] 40 mg PO DAILY 11/19/22 11/19/22 Famotidine [Pepcid] 20 mg PO DAILY 11/19/22 11/19/22 Medroxyprogesterone Acetate 150 mg IM Q90D 11/19/22 11/19/22 [Depo-Provera] Mirtazapine 45 mg PO HS 11/19/22 11/19/22 Omeprazole 40 mg PO DAILY 11/19/22 11/19/22 hydrOXYzine pamoate [Vistaril] 50 mg PO TID 11/19/22 11/19/22 polyethylene glycoL 3350 [Miralax] 17 gm PO DAILY PRN 11/19/22 11/19/22 Allergies Allergy/AdvReac Type Severity Reaction Status Date / Time POWDER IN GLOVES AdvReac Unknown IRRITATED Uncoded 12/16/24 21:10 SKIN Review of Systems ROS Statement: Those systems with pertinent positive or pertinent negative responses have been documented in the HPI. ROS Other: All systems not noted in ROS Statement are negative. Past Medical History Past Medical History: GERD/Reflux, Hyperlipidemia, Liver Disease, Pneumonia, Sleep Apnea/CPAP/BIPAP Additional Past Medical History / Comment(s): NO C-PAP, GENITAL HERPES, MIGRAINES, BRONCHITIS. History of Any Multi-Drug Resistant Organisms: MRSA Date of last positivie culture/infection: 06/21/15 MDRO Source:: right foot Past Surgical History: Tonsillectomy Additional Past Surgical History / Comment(s): TONSILLECTOMY & EAR TUBES A CHILD, NERVES "BURNT " IN NECK. Past Anesthesia/Blood Transfusion Reactions: No Reported Reaction Past Psychological History: Anxiety, Bipolar Smoking Status: Current every day smoker Past Alcohol Use History: Occasional Past Drug Use History: Marijuana General Exam Limitations: no limitations General appearance: alert, in no apparent distress ENT exam: Present: normal exam, mucous membranes moist Respiratory exam: Present: normal lung sounds bilaterally. Absent: respiratory distress, wheezes, rales, rhonchi, stridor Cardiovascular Exam: Present: regular rate, normal rhythm, normal heart sounds. Absent: systolic murmur, diastolic murmur, rubs, gallop, clicks GI/Abdominal exam: Present: soft, normal bowel sounds. Absent: distended, tenderness, guarding, rebound, rigid Left Foot/Toe exam: Present: tenderness. Absent: ecchymosis, deformity Neurovascular tendon exam: Present: no vascular compromise Gait: observed and limited by pain Back exam: Present: normal inspection Course Vital Signs 12/16/24 12/16/24 21:10 22:28 Temperature 98.1 F Pulse Rate 93 89 Respiratory 18 18 Rate Blood Pressure 134/98 128/90 O2 Sat by Pulse 100 100 Oximetry Medical Decision Making - Medical Decision Making Was pt. sent in by a medical professional or institution (Dr. PA, MACHINE TOOL DRESSER, urgent care, hospital, or assisted...) When possible be specific @ -No Did you speak to anyone other than the patient for history (EMS, parent, family, police, friend...)? What history was obtained from this source @ -No Did you review nursing and triage notes (agree or disagree)? Why? @ -I reviewed and agree with nursing and triage notes Were old charts reviewed (outside hosp., previous admission, EMS record, old EKG, old radiological studies, urgent care reports/EKG's, assisted records)? Report findings @ -No old charts were reviewed Differential Diagnosis (chest pain, altered mental status, abdominal pain women, abdominal pain men, vaginal bleeding, weakness, fever, dyspnea, syncope, headache, dizziness, GI bleed, back pain, seizure, CVA, palpatations, mental health, musculoskeletal)? @ -Differential Musculoskeletal Muscular strain, contusion, ligament sprain, fracture, arthritis, septic arthritis, bursitis, cellulitis, muscle spasm, nerve compression, DVT, arterial occlusion, herpes zoster, electrolyte abnormality, tumor.... This is not meant to be in all inclusive list EKG interpreted by me -[none X-rays interpreted by me (1pt min.). @ -X-ray of the left foot no evidence of acute fracture CT interpreted by me (1pt min.). @ -None done U/S interpreted by me (1pt. min.). @ -None done What testing was considered but not performed or refused? (CT, X-rays, U/S, labs)? Why? @ -None What meds were considered but not given or refused? Why? @ -None Did you discuss the management of the patient with other professionals (professionals i.e. , PA, MACHINE TOOL DRESSER, lab, RT, psych nurse, social science professor, solar energy engineer, teacher, information systems security officer, briefcase sewer)? Give summary @ -No Was smoking cessation discussed for >3mins.? @ -No Was critical care preformed (if so, how long)? @ -No Were there social determinants of health that impacted care today? How? (Homelessness, low income, unemployed, alcoholism, drug addiction, transportation, low edu. Level, literacy, decrease access to med. care, shelter, rehab)? @ -No Was there de-escalation of care discussed even if they declined (Discuss DNR or withdrawal of care, Hospice)? DNR status @ -No What co-morbidities impacted this encounter? (DM, HTN, Smoking, COPD, CAD, Cancer, CVA, ARF, Chemo, Hep., AIDS, mental health diagnosis, sleep apnea, morbid obesity)? @ -None Was patient admitted / discharged? Hospital course, mention meds given and route, prescriptions, significant lab abnormalities, going to OR and other pertinent info. @ -Discharge. 39-year-old female presenting with left great toe pain. Pedal pulse intact. She is provided with IM injection of Toradol for pain relief. X-ray is unremarkable. Supportive treatment discussed. Case discussed with Dr. Olmstead Undiagnosed new problem with uncertain prognosis? @ -No Drug Therapy requiring intensive monitoring for toxicity (Heparin, Nitro, Insulin, Cardizem)? @ -No Were any procedures done? @ -No Diagnosis/symptom? @ -toe sprain Acute, or Chronic, or Acute on Chronic? @ -acute Uncomplicated (without systemic symptoms) or Complicated (systemic symptoms)? @ -uncomplicated Side effects of treatment? @ -No Exacerbation, Progression, or Severe Exacerbation? @ -No Poses a threat to life or bodily function? How? (Chest pain, [place], [place], pneumonia, PE, COPD, DKA, ARF, appy, cholecystitis, CVA, Diverticulitis, Homicidal, Suicidal, threat to staff... and all critical care pts) @ -No Disposition Clinical Impression: Toe sprain Disposition: HOME SELF-CARE Condition: Good Instructions (If sedation given, give patient instructions): Foot Contusion (ED) Additional Instructions: Please return to the Emergency Department if symptoms worsen or any other concerns. Is patient prescribed a controlled substance at d/c from ED?: No Referrals: None,Stated [Primary Care Provider] - 1-2 days Time of Disposition: 21:44
--- NOTE | 2024-12-16 21:42 | XR ---
EXAMINATION TYPE: XR foot complete LT DATE OF EXAM: 12/16/2024 9:34 PM COMPARISON: None CLINICAL INDICATION: Female, 39 years old with history of great toe injury, pain, pain TECHNIQUE: XR foot complete LT examined in the AP, oblique, and lateral projections. FINDINGS: No evidence of any acute osseous pathology. Minimal degeneration changes of the first digit tarsometa tarsal joint. Moderate joint space narrowing. IMPRESSION: 1. No evidence of acute fracture. 2. Minimal degeneration changes of the first digit tarsometatarsal joint. [facility], , 12/16/2024 9:39 PM
[2024-12-16] MEDS: KETOROLAC 15 MG/ML 1 ML VIAL IM STA (21:47)
[2024-12-16 22:29] VITALS: BP 128/90; PULSE 89; TEMP 98.1
== END 2024-12-16 22:28 | disposition home or self-care (01) ==
LOC: EC 21:00
DX: S93.502A Unspecified sprain of left great toe, initial encounter (principal); F17.200 Nicotine dependence, unspecified, uncomplicated; Z91.148 Patient's other noncompliance with medication regimen for other reason; W20.8XXA Other cause of strike by thrown, projected or falling object, initial encounter
CPT/HCPCS: 73630; 99283; 96372; J1885

== ENCOUNTER 2025-04-05 14:58 | Emergency (ER) | payer OTHER ==
[2025-04-05] MEDS: KETOROLAC 15 MG/ML 1 ML VIAL IM STA (16:10)
--- NOTE | 2025-04-05 16:29 | XR ---
EXAMINATION TYPE: XR hand complete RT DATE OF EXAM: 04/05/2025 4:21 PM INDICATION: Patient age:Female; 39 years old; Reason for study: medial hand hit with ball; [facility]. pain COMPARISON: Right forearm radiograph 04/05/2025, right hand radiograph 06/06/2015 TECHNIQUE: Frontal, lateral and oblique views of the right hand were obtained. FINDINGS: Normal alignment of the visualized joints. No acute osseous pathology is identified. Dorsa l hand soft tissue swelling. No radiopaque foreign body. IMPRESSION: 1. No acute osseous pathology. 2. Dorsal hand soft tissue swelling. [facility], , 04/05/2025 4:26 PM
--- NOTE | 2025-04-05 16:30 | XR ---
EXAMINATION TYPE: XR forearm RT DATE OF EXAM: 04/05/2025 4:21 PM INDICATION: Patient age:Female; 39 years old; Reason for study: medial hand hit with ball; [facility]. pain COMPARISON: Right hand radiograph the same date TECHNIQUE: The right forearm was examined in AP and lateral projections. FINDINGS: No acute osseous pathology or joint dislocation. No radiopaque foreign body. Dorsal soft t issue and swelling. IMPRESSION: 1. No evidence of acute fracture. 2. Dorsal hand soft tissue swelling. [facility], , 04/05/2025 4:28 PM
--- NOTE | 2025-04-05 16:34 | ED ---
General Adult HPI - General Chief complaint: Extremity Injury, Upper Stated complaint: Right Hand Injury Time Seen by Provider: 04/05/25 15:21 Source: patient, RN notes reviewed Mode of arrival: ambulatory Limitations: no limitations - History of Present Illness Initial comments: 39-year-old female presents to the emergency department for evaluation of right hand injury. Patient states that she was pitching at a softball game when the batter hit the ball causing the ball to come and hit her in the hand. She notes that swelling to the dorsum of the right hand. She notes pain with movement of the fingers. - Related Data Home Medications Medication Instructions Recorded Confirmed Buprenorphine/Naloxone 8Mg/2Mg 1.5 film SL DAILY 11/19/22 11/19/22 [Suboxone 8-2Mg Film] Docusate Sodium 250 mg PO BID PRN 11/19/22 11/19/22 FLUoxetine HCL [PROzac] 40 mg PO DAILY 11/19/22 11/19/22 Famotidine [Pepcid] 20 mg PO DAILY 11/19/22 11/19/22 Medroxyprogesterone Acetate 150 mg IM Q90D 11/19/22 11/19/22 [Depo-Provera] Mirtazapine 45 mg PO HS 11/19/22 11/19/22 Omeprazole 40 mg PO DAILY 11/19/22 11/19/22 hydrOXYzine pamoate [Vistaril] 50 mg PO TID 11/19/22 11/19/22 polyethylene glycoL 3350 [Miralax] 17 gm PO DAILY PRN 11/19/22 11/19/22 Allergies Allergy/AdvReac Type Severity Reaction Status Date / Time POWDER IN GLOVES AdvReac Unknown IRRITATED Uncoded 04/05/25 15:03 SKIN Review of Systems ROS Statement: Those systems with pertinent positive or pertinent negative responses have been documented in the HPI. ROS Other: All systems not noted in ROS Statement are negative. Past Medical History Past Medical History: GERD/Reflux, Hyperlipidemia, Liver Disease, Pneumonia, Sleep Apnea/CPAP/BIPAP Additional Past Medical History / Comment(s): NO C-PAP, GENITAL HERPES, MIGRAINES, BRONCHITIS. History of Any Multi-Drug Resistant Organisms: MRSA Date of last positivie culture/infection: 06/21/15 MDRO Source:: right foot Past Surgical History: Tonsillectomy Additional Past Surgical History / Comment(s): TONSILLECTOMY & EAR TUBES A CHILD, NERVES "BURNT " IN NECK. Past Anesthesia/Blood Transfusion Reactions: No Reported Reaction Past Psychological History: Anxiety, Bipolar Smoking Status: Current every day smoker Past Alcohol Use History: Occasional Past Drug Use History: Marijuana General Exam Limitations: no limitations General appearance: alert, in no apparent distress Head exam: Present: atraumatic, normocephalic, normal inspection Eye exam: Present: normal appearance, PERRL, EOMI. Absent: scleral icterus, conjunctival injection, periorbital swelling Respiratory exam: Present: normal lung sounds bilaterally. Absent: respiratory distress, wheezes, rales, rhonchi, stridor Cardiovascular Exam: Present: regular rate, normal rhythm, normal heart sounds. Absent: systolic murmur, diastolic murmur, rubs, gallop, clicks Extremities exam: Present: full ROM, tenderness (Tenderness over the dorsal medial aspect of the right hand), normal capillary refill, other (Radial pulses 2+, soft tissue swelling dorsal right hand). Absent: pedal edema, joint swelling, calf tenderness Neurological exam: Present: alert, oriented X3 Psychiatric exam: Present: normal affect, normal mood Skin exam: Present: warm, dry, intact, normal color Course Vital Signs 04/05/25 04/05/25 15:00 16:47 Temperature 99.6 F 98.3 F Pulse Rate 92 71 Respiratory 20 16 Rate Blood Pressure 123/84 118/88 O2 Sat by Pulse 94 L 99 Oximetry Medical Decision Making - Medical Decision Making Was pt. sent in by a medical professional or institution (, PA, RESTAURANT FRONT MANAGER, urgent care, hospital, or skilled nursing...) When possible be specific @ -No Did you speak to anyone other than the patient for history (EMS, parent, family, police, friend...)? What history was obtained from this source @ -No Did you review nursing and triage notes (agree or disagree)? Why? @ -I reviewed and agree with nursing and triage notes Were old charts reviewed (outside hosp., previous admission, EMS record, old EKG, old radiological studies, urgent care reports/EKG's, skilled nursing records)? Report findings @ -No old charts were reviewed Differential Diagnosis (chest pain, altered mental status, abdominal pain women, abdominal pain men, vaginal bleeding, weakness, fever, dyspnea, syncope, headache, dizziness, GI bleed, back pain, seizure, CVA, palpatations, mental health, musculoskeletal)? @ -Differential Musculoskeletal Muscular strain, contusion, ligament sprain, fracture, arthritis, septic arthritis, bursitis, cellulitis, muscle spasm, nerve compression, DVT, arterial occlusion, herpes zoster, electrolyte abnormality, tumor.... This is not meant to be in all inclusive list EKG interpreted by me (3pts min.). @ -None X-rays interpreted by me (1pt min.). @ -X-ray of the right hand and forearm revealed no evidence of acute fracture or dislocation, soft tissue swelling of the dorsal hand visible CT interpreted by me (1pt min.). @ -None done U/S interpreted by me (1pt. min.). @ -None done What testing was considered but not performed or refused? (CT, X-rays, U/S, labs)? Why? @ -None What meds were considered but not given or refused? Why? @ -None Did you discuss the management of the patient with other professionals (professionals i.e. , PA, RESTAURANT FRONT MANAGER, lab, RT, psych nurse, social worker psychiatric, behavioral health aide, t eacher, ground defence officer, case liner)? Give summary @ -No Was smoking cessation discussed for >3mins.? @ -No Was critical care preformed (if so, how long)? @ -No Were there social determinants of health that impacted care today? How? (Homelessness, low income, unemployed, alcoholism, drug addiction, transportation, low edu. Level, literacy, decrease access to med. care, shelter, rehab)? @ -No Was there de-escalation of care discussed even if they declined (Discuss DNR or withdrawal of care, Hospice)? DNR status @ -No What co-morbidities impacted this encounter? (DM, HTN, Smoking, COPD, CAD, Cancer, CVA, ARF, Chemo, Hep., AIDS, mental health diagnosis, sleep apnea, morbid obesity)? @ -None Was patient admitted / discharged? Hospital course, mention meds given and route, prescriptions, significant lab abnormalities, going to OR and other pertinent info. @ -Discharge. Patient presented emergency department for evaluation of right hand injury. X-rays obtained revealing no acute process. Patient distally neurovascularly intact. Patient placed in Mikel bandage. Advised rest, ice, compression, elevation. Advised ibuprofen and acetaminophen for discomfort. She is understanding agreeable to plan. Patient stable at time of discharge. Case discussed with Dr. Olmstead Undiagnosed new problem with uncertain prognosis? @ -No Drug Therapy requiring intensive monitoring for toxicity (Heparin, Nitro, Insulin, Cardizem)? @ -No Were any procedures done? @ -No Diagnosis/symptom? @ -Hand contusion Acute, or Chronic, or Acute on Chronic? @ -Acute Uncomplicated (without systemic symptoms) or Complicated (systemic symptoms)? @ -Uncomplicated Side effects of treatment? @ -No Exacerbation, Progression, or Severe Exacerbation? @ -No Poses a threat to life or bodily function? How? (Chest pain, [place], [place], pneumonia, PE, COPD, DKA, ARF, appy, cholecystitis, CVA, Diverticulitis, Homicidal, Suicidal, threat to staff... and all critical care pts) @ -No Disposition Clinical Impression: Hand contusion Disposition: HOME SELF-CARE Condition: Stable Instructions (If sedation given, give patient instructions): P.R.I.C.E. Treatment (ED), Hematoma (ED) Additional Instructions: Please utilize Miekl bandage to apply compression to the hand. Rest, ice, elevate the hand. Alternate acetaminophen and ibuprofen as needed for pain. Follow-up with your primary care provider. Return to the emergency department for new or worsening symptoms. Is patient prescribed a controlled substance at d/c from ED?: No Referrals: Jeremy Naranjo MD [Primary Care Provider] - 1-2 days
[2025-04-05 16:49] VITALS: BP 118/88; PULSE 71; RESP 16; TEMP 98.3
== END 2025-04-05 16:49 | disposition home or self-care (01) ==
LOC: EC 14:58
DX: S60.221A Contusion of right hand, initial encounter (principal); F17.200 Nicotine dependence, unspecified, uncomplicated; Z88.8 Allergy status to other drugs, medicaments and biological substances; W21.07XA Struck by softball, initial encounter
CPT/HCPCS: 73090; 73130; 99283; 96372; J1885